=== PATIENT | male | born 1975 | race Hispanic/Latino ===

== ENCOUNTER 2019-10-02 15:10 | Outpatient (CLI) | payer OTHER ==
--- NOTE | 2019-10-02 15:49 | RAD ---
PA AND LATERAL VIEWS OF THE CHEST: 10/02/19 HISTORY: Chest pain. FINDINGS: Comparison is made with exam of 01/08/03. The heart size is normal. The lungs are expanded without focal areas of consolidation, pneumothoraces , or pleural effusions. No acute osseous abnormalities are seen. IMPRESSION: No radiographic evidence of acute cardiopulmonary process. POS: OFF
== END 2019-10-02 15:11 | disposition home or self-care (01) ==
LOC: SCSRAD 15:10
PROVIDERS: ATTEND Dietitian, Registered
DX: R06.02 Shortness of breath (principal)
CPT/HCPCS: 71046

== ENCOUNTER 2019-11-13 19:30 | Outpatient (CLI) | payer OTHER | END 2019-11-13 19:31 | disposition home or self-care (01) | LOC: SLEEPLAB 19:30 | PROVIDERS: ATTEND Dietitian, Registered | DX: G47.9 Sleep disorder, unspecified (principal); G47.33 Obstructive sleep apnea (adult) (pediatric); R06.83 Snoring; G47.00 Insomnia, unspecified; R09.89 Other specified symptoms and signs involving the circulatory and respiratory systems; G47.10 Hypersomnia, unspecified; I10 Essential (primary) hypertension | CPT/HCPCS: 95811 ==

== ENCOUNTER 2019-12-16 10:57 | Outpatient (CLI) | payer OTHER ==
--- NOTE | 2019-12-16 12:54 | ULT ---
GALLBLADDER ULTRASOUND: Date: 12/16/2019 INDICATION: Right upper quadrant pain. Postprandial pain and bloating. FINDINGS: There is low volume ascites noted in the right upper quadrant. Gallbladder shows no evidence of galls tones. There is mild gallbladder wall thickening which is secondary to the ascites. Common bile duct is normal caliber. Visualized liver unremarkable. The pancreas is mostly obscured; however, images of the pancreatic head and neck show a hypoechoic fo cus which measures 1.0-1.5 cm. A pancreatic mass is not excluded. Recommend further evaluation with C T abdomen with and without contrast following pancreatic protocol. The right kidney is imaged and appears unremarkable. Technologist describes a negative Clay's sign. There is evidence of a small right pleural effusion. IMPRESSION: 1. Low volume ascites is noted. 2. Hypoechoic focus in region of pancreatic head/neck. Recommend further evaluation with CT abdomen. 3. Small right pleural effusion. POS: AGW
== END 2019-12-16 10:58 | disposition home or self-care (01) ==
LOC: SCSULT 10:57
PROVIDERS: ATTEND Internal Medicine
DX: R14.0 Abdominal distension (gaseous) (principal); R18.8 Other ascites; R93.3 Abnormal findings on diagnostic imaging of other parts of digestive tract; J90 Pleural effusion, not elsewhere classified
CPT/HCPCS: 76705